=== PATIENT | female | born 1990 ===

== ENCOUNTER 2022-01-05 16:35 | Emergency (ER) | payer SELFPAY ==
[2022-01-05] MEDS ORDERED: METOCLOPRAMIDE 10 MG/2 ML INJ IV ONE (17:30)
[2022-01-05] MEDS ORDERED: ACETAMINOPHEN 500 MG TAB PO ONE (17:30)
[2022-01-05] MEDS ORDERED: cefTRIAXone/NS 2 GM/100 ML 2 GM/100 ML BAG IV ONE (17:30)
[2022-01-05] MEDS ORDERED: SODIUM CHLORIDE 0.9% 1000 ML 3,000 ML IV ONE (17:30)
--- NOTE | 2022-01-05 17:32 | Emergency Department Report ---
<DEANNE LÓPEZ - Last Filed: 01/05/22 21:13> ED General Adult HPI - General Chief complaint: Fever Stated complaint: CHILLIS Time Seen by Provider: 01/05/22 17:23 - Related Data Previous Rx's Medication Instructions Recorded Last Taken Type Nitrofurantoin [place]/M-Cryst 100 mg PO Q12HR #14 capsule 01/05/22 Unknown Rx [Macrobid CAP] Ondansetron [Zofran Odt] 4 mg PO Q8HR PRN #14 tab.rapdis 01/05/22 Unknown Rx Allergies Allergy/AdvReac Type Severity Reaction Status Date / Time No Known Allergies Allergy Unverified 01/05/22 17:12 ED Past Medical Hx - Medications Home Medications: Home Medications Medication Instructions Recorded Confirmed Last Taken Type Nitrofurantoin [place]/M-Cryst 100 mg PO Q12HR #14 capsule 01/05/22 Unknown Rx [Macrobid CAP] Ondansetron [Zofran Odt] 4 mg PO Q8HR PRN #14 tab.rapdis 01/05/22 Unknown Rx ED Medical Decision Making - Lab Data Result diagrams: 01/05/22 17:38 01/05/22 17:38 - Radiology Data Radiology results: report reviewed - Medical Decision Making Patient is 31 years old female signed out to me by my colleague. Patient presented with fever, nausea and increased urinary frequency. Patient found to have a leukocytosis of 19,000. Urine is strongly positive for UTI. CT abdomen and pelvis is negative for acute finding. Patient received 3 L of normal saline and 2 g of Rocephin and Zofran 4 mg. Patient stated that she is feeling much better. She stated that her nausea has completely resolved. Patient given prescription for Macrobid and Zofran and advised to follow-up with her primary doctor in the next 2 to 3 days and to return to the ER if she develop any new symptoms. ED Disposition Clinical Impression: UTI (urinary tract infection), Dehydration, Nausea Disposition: 01 HOME / SELF CARE / HOMELESS Is pt being admited?: No Condition: Stable Instructions: Nausea, Adult, Dehydration, Adult, [id number], Urinary Tract Infection, Adult Prescriptions: Nitrofurantoin [place]/M-Cryst [Macrobid CAP] 100 mg PO Q12HR #14 capsule Ondansetron [Zofran Odt] 4 mg PO Q8HR PRN #14 tab.rapdis PRN Reason: Nausea And Vomiting Referrals: PRIMARY CARE, [Primary Care Provider] - 3-5 Days Print Language: YORUBA <PRESTON CHASE - Last Filed: 01/09/22 05:28> ED General Adult HPI - General PUI?: No Source: patient, RN notes reviewed Mode of arrival: Ambulatory Limitations: No Limitations - History of Present Illness Initial comments: This patient is a 31-year-old female who reports no chronic medical conditions, who reports that she is not , who has received her COVID-19 vaccination, presenting to the ER today with complaint of fever chills, bilateral paralumbar back pain, present for 2 weeks. Please note that the patient speaks Armenian, and this provider is conversant in Armenian. The patient denies headache, neck pain, chest pain, upper abdominal pain, vomiting, diarrhea. She endorses dysuria and frequency. She endorses nausea. Positive generalized malaise and fatigue. -: Gradual, days(s) Location: back Severity scale (0 -10): 5 Consistency: intermittent Improves with: none Worsens with: none ED Review of Systems ROS: Stated complaint: CHILLIS Other details as noted in HPI Constitutional: chills, fever, malaise, weakness Eyes: denies: eye discharge Respiratory: denies: cough Cardiovascular: denies: chest pain Gastrointestinal: nausea. denies: abdominal pain, vomiting Genitourinary: urgency, dysuria, frequency Musculoskeletal: back pain Neurological: weakness ED Physical Exam - General Limitations: No Limitations General appearance: alert, in no apparent distress - Head Head exam: Present: atraumatic, normocephalic - Eye Eye exam: Present: normal appearance, EOMI. Absent: conjunctival injection, nystagmus - ENT ENT exam: Present: normal exam, normal orophraynx, mucous membranes moist, nadia l external ear exam - Neck Neck exam: Present: normal inspection, full ROM. Absent: tenderness, meningismus - Respiratory Respiratory exam: Present: normal lung sounds bilaterally. Absent: respiratory distress, wheezes, rales, rhonchi, stridor, decreased breath sounds - Cardiovascular Cardiovascular Exam: Present: normal rhythm, tachycardia, normal heart sounds. Absent: bradycardia, irregular rhythm, systolic murmur, diastolic murmur, rubs, gallop - GI/Abdominal GI/Abdominal exam: Present: soft. Absent: distended, tenderness, guarding, rebound, rigid, pulsatile mass - Extremities Exam Extremities exam: Present: normal inspection, full ROM, other (2+ pulses noted in the bilateral upper and lower extremities. There is no palpable cord. negative Homans sign. Muscular compartments are soft. The pelvis is stable.). Absent: pedal edema, calf tenderness - Back Exam Back exam: Present: normal inspection, CVA tenderness (R), CVA tenderness (L). Absent: tenderness, paraspinal tenderness, vertebral tenderness - Neurological Exam Neurological exam: Present: alert, oriented X3, other (No facial droop. Tongue midline. Extraocular movements intact bilaterally. Facial sensation intact to light touch in V1, V2, V3 distribution bilaterally. 5 and a 5 strength in 4 extremities. Sensation intact to light touch in 4 extremities.). Absent: motor sensory deficit - Psychiatric Psychiatric exam: Present: anxious - Skin Skin exam: Present: warm, dry, intact, normal color. Absent: rash ED Course Vital Signs 01/05/22 01/05/22 01/05/22 17:16 18:19 18:24 Temperature 100.9 F H Pulse Rate 137 H Respiratory 18 Rate Blood Pressure 113/51 [Right] O2 Sat by Pulse 97 99 Oximetry O2 Sat by Pulse 99 Oximetry [ Digit-Finger] 01/05/22 01/05/22 01/05/22 19:13 20:00 21:00 Temperature 98.8 F Pulse Rate 112 H 102 H Respiratory 18 20 18 Rate Blood Pressure 97/49 99/61 [Right] O2 Sat by Pulse 97 98 Oximetry O2 Sat by Pulse Oximetry [ Digit-Finger] 01/05/22 01/05/22 22:00 23:00 Temperature Pulse Rate 97 H 88 Respiratory 16 14 Rate Blood Pressure 111/62 111/71 [Right] O2 Sat by Pulse 98 100 Oximetry O2 Sat by Pulse Oximetry [ Digit-Finger] - Reevaluation(s) Reevaluation #1: 01/05/22 18:18 Differential diagnosis, including but not limited to: Pyelonephritis, appendicitis, colitis, diverticulitis Assessment and plan: 31-year-old female, with irritative and obstructive urinary symptoms, back pain, fever, tachycardia, likely presenting with systemic inflammatory response syndrome secondary to pyelonephritis. Patient denies history of STI. Mild CVA tenderness bilaterally. No abdominal tenderness at this time. Urinalysis suggestive of UTI, although epithelial cells are appreciated. Place patient on cardiac cath technician. Start fluids, Tylenol, Reglan, Lovenox ceftriaxone, obtain appropriate laboratory studies, and obtain CT scan of the abdomen pelvis. Discussed this with the patient. She is agreeable to the plan of care. Reassess after studies have resulted - Pulse Oximetry Interpretation Digit-Finger Initial Pulse Oximetry Readin O2 Sat by Pulse Oximetry: 99 Actions Taken: none ED Medical Decision Making - Lab Data Result diagrams: 01/05/22 17:38 01/05/22 17:38 Vital Signs 01/05/22 17:16 Temperature 100.9 F H Pulse Rate 137 H Respiratory 18 Rate Blood Pressure 113/51 [Right] O2 Sat by Pulse 97 Oximetry Lab Results 01/05/22 Range/Units 17:39 Urine Color Yellow (Yellow) Urine Turbidity Cloudy (Clear) Urine pH 6.0 (5.0-7.0) Ur Specific [place] 1.006 (1.003-1.030) Urine Protein 100 mg/dl (Negative) mg/dL Urine Glucose (UA) Neg (Negative) mg/dL Urine Ketones Neg (Negative) mg/dL Urine Blood Mod (Negative) Urine Nitrite Pos (Negative) Urine Bilirubin Neg (Negative) Urine Urobilinogen < 2.0 (<2.0) mg/dL Ur Leukocyte Esterase Lg (Negative) Urine WBC (Auto) 77.0 H (0.0-6.0) /HPF Urine RBC (Auto) 3.0 (0.0-6.0) /HPF U Epithel Cells (Auto) 33.0 H (0-13.0) /HPF Urine Bacteria (Auto) 4+ (Negative) /HPF Urine Mucus Few /HPF Urine Yeast (Budding) 2+ /HPF - Radiology Data Radiology results: report reviewed, image reviewed Critical care attestation.: If time is entered above; I have spent that time in minutes in the direct care of this critically ill patient, excluding procedure time. ED Disposition Is pt being admited?: No Does the pt Need Aspirin: No
[2022-01-05 18:14] LABS: Bacteria,Urine 4+ /HPF (Negative); Bilirubin,Urine NEG (Negative); Blood,Urine MOD (Negative); Color,Urine Yellow (Yellow); Mucus,Urine FEW /HPF; Urobilinogen,Urine < 2.0 mg/dL (<2.0)
[2022-01-05 18:41] LABS: Hematocrit 40.4 % (30.3-42.9); Hemoglobin 13.4 gm/dl (10.1-14.3); Mean Corpuscular HGB Conc 33 % (30-34); Mean Corpuscular Volume 86 fl (79-97); Platelet Count 400 K/mm3 (140-440); Red Blood Count 4.71 M/mm3 (3.65-5.03); Red Cell Distribution Width 12.7 % (13.2-15.2)
[2022-01-05 19:06] LABS: Alanine Aminotransferase 18 units/L (7-56); Albumin 4.3 g/dL (3.9-5); BUN/Creatinine Ratio 14; Blood Urea Nitrogen 11 mg/dL (7-17); Calcium 9.5 mg/dL (8.4-10.2); Hemolysis Index 1
--- NOTE | 2022-01-05 20:54 | Cat Scan Report ---
CT ABDOMEN AND PELVIS WITH CONTRAST HISTORY: Acute back pain, sepsis pyelo vs stone vs both COMPARISON: None TECHNIQUE: Routine abdominal and pelvic CT exam performed following intravenous contrast administrat ion.. All CT scans at this location are performed using CT dose reduction for ALARA by means of autom ated exposure control. FINDINGS: CT ABDOMEN: Lung Bases: No significant abnormality. Liver: No significant abnormality. Biliary: No significant abnormality. Spleen: No significant abnormality. Unenlarged. Pancreas: No significant abnormality. Adrenals: No significant abnormality. Kidneys: Normal appearance of the kidneys. No stones or obstruction. Lymphatics: No lymphadenopathy. Vasculature: No significant abnormality. Bowel/Peritoneum: No significant abnormality. No free air. No free fluid. CT PELVIC: : No significant abnormality. Lymphatics: No lymphadenopathy. Osseous Structures: No aggressive appearing osseous lesions. Additional Findings: None IMPRESSION: 1. No acute findings or findings to explain the patient's symptoms. Signer Name: Kevin Samuels MD Signed: 01/05/2022 8:50 PM Workstation Name: [id number]
[2022-01-05 23:09] VITALS: BP 111/71
--- NOTE | 2022-01-06 13:42 | Electrocardiograph Report ---
[facility] Test Date: 2022-01-05 Test Time: 19:55:21 Pat Name: ALTAF FERNANDOGUIA Department: Room: Gender: F Pad Tufter: YONATAN : 1990 Requested By: PRESTON CHASE Order Number: [id number] Reading MD: Melquiades Juarez Measurements Intervals [place] Rate: 106 P: 49 TN: 147 QRS: 37 QRSD: 76 T: 17 QT: 329 QTc: 438 Interpretive Statements Sinus tachycardia No previous ECG available for comparison Electronically Signed On 01-06-2022 13:42:33 EST by Melquiades Juarez
== END 2022-01-05 23:00 | disposition home or self-care (01) ==
LOC: ED 16:35
DX: N39.0 Urinary tract infection, site not specified (principal); E86.0 Dehydration; R11.0 Nausea
CPT/HCPCS: 36415; 74177; 80053; 81001; 82550; 83735; 84443; 84702; 85027; 87086; 93005; 96365; 96375; 99284; J0696; J2765; J7030; Q9967; 96361; 96374; Q0162

== ENCOUNTER 2022-04-10 11:21 | Emergency (ER) | payer SELFPAY ==
[2022-04-10 12:43] VITALS: BP 130/83
== END 2022-04-10 13:00 | disposition left against medical advice (07) ==
LOC: ED 11:21
DX: M54.50 Low back pain, unspecified (principal); Z53.21 Procedure and treatment not carried out due to patient leaving prior to being seen by health care provider